=== PATIENT | male | born 1980 | race Caucasian/White ===

== ENCOUNTER 2021-07-15 08:46 | Inpatient (IN) | payer MEDICAID ==
[~2021-07-15] VITALS: Ht 170.2 cm; Wt 96.0 kg
[2021-07-15] MEDS ORDERED: HALOPERIDOL 5 MG TABLET PO PRN (09:45)
[2021-07-15 10:19] LABS: GLUCOMETER DEV NAME(LOC) POC.BV
[2021-07-15 11:31] VITALS: BP 101/65
[2021-07-15] MEDS: LORazepam 2 MG TABLET PO PRN ×3 (11:46→23:19)
[2021-07-15] MEDS ORDERED: INFLUENZA VIRUS VACCINE QVS 2021-22 (6MO+)/PF 60 MCG/0.5 ML SYRINGE IM. ONE (13:45)
[2021-07-15 16:15] VITALS: BP 103/64
[2021-07-15] MEDS: ZOLPIDEM TARTRATE 10 MG TABLET PO PRN (20:41)
[2021-07-16 00:42] VITALS: BP 103/68
[2021-07-16 08:10] LABS: BASOPHILS % (AUTO) 0.2 % (0.0-2.0); EOSINOPHILS % (AUTO) 3.3 % (1.0-6.0); HEMOGLOBIN 15.4 g/dL (13.5-17.5); LYMPHOCYTES # (AUTO) 2.1 K/uL (1.0-4.8); LYMPHOCYTES % (AUTO) 28.7 % (22.0-44.0); MEAN CORPUSCULAR HEMOGLOBIN 28.6 pg (26.0-34.0); MEAN CORPUSCULAR HGB CONC 32.7 G/dL (31.0-37.0); MEAN CORPUSCULAR VOLUME 88 fL (80-100); MONOCYTES # (AUTO) 0.6 K/uL (0.1-1.0); MONOCYTES % (AUTO) 8.1 % (2.0-9.0); NEUTROPHILS # (AUTO) 4.3 K/uL (1.8-7.7); NEUTROPHILS % (AUTO) 59.7 % (40.0-70.0); PLATELET COUNT (AUTO) 232 K/uL (150-450); RED BLOOD CELL COUNT(AUTO) 5.37 MIL/uL (4.50-5.90); RED CELL DISTRIBUTION WIDTH 13.9 % (11.5-14.5)
[2021-07-16 08:14] LABS: HEMOGLOBIN A1C 5.5 % (3.8-5.6)
[2021-07-16 08:23] VITALS: BP 111/72
[2021-07-16] MEDS ORDERED: MAGNESIUM HYDROXIDE SUSPENSION 30 ML UDCUP PO PRN (08:45)
[2021-07-16] MEDS ORDERED: OMEPRAZOLE 20 MG CAPSULE PO PRN (08:45)
[2021-07-16] MEDS ORDERED: ONDANSETRON HCL 4 MG TABLET PO PRN (08:45)
[2021-07-16] MEDS ORDERED: ACETAMINOPHEN 325 MG TABLET PO PRN (08:45)
[2021-07-16] MEDS ORDERED: DOCUSATE SODIUM 100 MG CAPSULE PO PRN (08:45)
[2021-07-16] MEDS ORDERED: MAG HYDROX/AL HYDROX/SIMETH ES 30 ML SUSPENSION UDCUP PO PRN (08:45)
[2021-07-16] MEDS ORDERED: ALBUTEROL SULFATE HFA 90 MCG/PUFF 8 GM INHALER IH PRN (08:45)
[2021-07-16] MEDS ORDERED: BENZOCAINE/MENTHOL LOZENGE PO PRN (08:45)
[2021-07-16] MEDS ORDERED: BACITRACIN 28 GM OINTMENT TP PRN (08:45)
[2021-07-16] MEDS ORDERED: PETROLATUM,WHITE 28 GM JELLY TP PRN (08:45)
[2021-07-16] MEDS ORDERED: LOPERAMIDE HCL 2 MG CAPSULE PO PRN (08:45)
[2021-07-16] MEDS ORDERED: IBUPROFEN 600 MG TABLET PO PRN (08:45)
[2021-07-16] MEDS ORDERED: CloNIDine HCL 0.1 MG TABLET PO PRN (08:45)
[2021-07-16] MEDS: NICOTINE 21 MG/24 HOUR PATCH TD SCH (08:51)
[2021-07-16 08:59] LABS: ALANINE AMINOTRANSFERASE 28 U/L (12-78); ALBUMIN 3.5 g/dL (3.4-5.0); ALKALINE PHOSPHATASE 66 U/L (46-116); ANION GAP 5 mmol/L (8-16); ASPARTATE AMINOTRANSFERASE 14 U/L (15-37); BILIRUBIN,TOTAL 0.3 mg/dL (0.1-1.0); CALCIUM, TOTAL 8.6 mg/dL (8.8-10.5); CARBON DIOXIDE 31 mmol/L (22-29); CHLORIDE 109 mmol/L (98-107); CHOL/HDL RATIO 3.3 (4.2-7.3); CHOLESTEROL 122 mg/dL (131-200); CREATININE 0.91 mg/dL (0.60-1.30); FREE T4 (FREE THYROXINE) 0.96 ng/dL (0.76-1.46); GLOMERULAR FILTR. RATE CALC > 60 mL/min (>60); GLUCOSE,RANDOM 108 mg/dL (70-110); HDL CHOLESTEROL 37 mg/dL (40-60); LDL CHOL (CALC.) 75 mg/dL (0-130); POTASSIUM 4.5 mmol/L (3.5-5.1); SODIUM SERUM 145 mmol/L (136-145); THYROID STIMULATING HORMONE 1.33 uIU/mL (0.36-3.74); TOTAL PROTEIN, SERUM 6.8 g/dL (6.4-8.2); TRIGLYCERIDES 50 mg/dL (15-150); UREA NITROGEN, BLOOD 9 mg/dL (7-18)
[2021-07-16] MEDS: BENZTROPINE MESYLATE 1 MG TABLET PO SCH (16:06)
[2021-07-16] MEDS: RisperiDONE 2 MG TABLET PO SCH (16:06)
[2021-07-16 16:09] VITALS: BP 118/72
[2021-07-16] MEDS: ZOLPIDEM TARTRATE 10 MG TABLET PO PRN (23:15)
[2021-07-17 00:53] VITALS: BP 109/80
[2021-07-17 08:24] VITALS: BP 114/68
[2021-07-17] MEDS: BENZTROPINE MESYLATE 1 MG TABLET PO SCH ×2 (09:09→17:01)
[2021-07-17] MEDS: RisperiDONE 2 MG TABLET PO SCH ×2 (09:09→17:01)
[2021-07-17] MEDS: NICOTINE 21 MG/24 HOUR PATCH TD SCH (09:18)
[2021-07-17 16:20] VITALS: BP 104/68
[2021-07-17] MEDS: ZOLPIDEM TARTRATE 10 MG TABLET PO PRN (20:20)
[2021-07-18 00:28] VITALS: BP 105/70
[2021-07-18] MEDS ORDERED: RISP2TAB45 PO (07:23)
[2021-07-18] MEDS ORDERED: BENZ1TAB10 PO (07:24)
[2021-07-18 08:24] VITALS: BP 106/65
[2021-07-18] MEDS: NICOTINE 21 MG/24 HOUR PATCH TD SCH (09:05)
[2021-07-18] MEDS: BENZTROPINE MESYLATE 1 MG TABLET PO SCH (09:05)
[2021-07-18] MEDS: RisperiDONE 2 MG TABLET PO SCH (09:05)
== END 2021-07-18 10:40 | disposition home or self-care (01) | DRG 753 ==
LOC: B2S 10:00
PROVIDERS: ADMIT Psychiatry & Neurology Psychiatry; ATTEND Psychiatry & Neurology Psychiatry
DX: F31.9 Bipolar disorder, unspecified (principal); F14.10 Cocaine abuse, uncomplicated; Z20.822 Contact with and (suspected) exposure to COVID-19; F20.9 Schizophrenia, unspecified; F41.9 Anxiety disorder, unspecified; G47.00 Insomnia, unspecified; I10 Essential (primary) hypertension; K59.00 Constipation, unspecified; Z72.0 Tobacco use; Z71.6 Tobacco abuse counseling
CPT/HCPCS: 80053; 80061; 83036; 84436; 84439; 84443; 85025; 86592; 90686; G0480